=== PATIENT | female | born 1960 | race Caucasian/White ===

== ENCOUNTER 2016-09-01 22:26 | Emergency (ER) | payer OTHER ==
--- NOTE | 2016-09-01 23:29 | ED CLINICAL REPORT ---
Clinical Report - Physicians/Mid Levels [facility] [address] [place] [address] 09/01/2016 22:27 Patient: MAR WILLIAMSON Time Seen: 22:51. Arrived- By private vehicle. Historian- patient. HISTORY OF PRESENT ILLNESS Chief Complaint: DYSURIA. This started yesterday and still present. The symptoms are described as severe. No abdominal pain or pelvic pain. She has had pain with urination and urgency of urination. The patient has had urinary frequency and hematuria. Similar symptoms previously: Several times. Recent medical care: Not recently seen/assessed. REVIEW OF SYSTEMS No nausea, vomiting, fever or chills. PAST HISTORY See nurses notes. ( Menopause). No history of hypertension or diabetes mellitus. Surgeries: . No history of hysterectomy. SOCIAL HISTORY Smoker- current status unknown. No alcohol use or drug use. ADDITIONAL NOTES The nursing notes have been reviewed. PHYSICAL EXAM Vital Signs: 09/01/2016 22:41 BP: 108/67. HR: 61. RR: 16. O2 saturation: 97%. Temp: 97.7 F. Pain level now: 8/10. Have been reviewed and appear to be correct. Appearance: Alert. Oriented X3. No acute distress. HEENT: Normal external inspection. Neck: Neck supple. Respiratory: No respiratory distress. Abdomen: Moderate tenderness in the suprapubic area. Skin: Skin warm and dry. Normal skin color. Normal skin turgor. Neuro: Oriented X 3. Mood/affect normal. PROGRESS AND PROCEDURES Course of Care: Patient is stable. Disposition: Discharged. Condition: stable. CLINICAL IMPRESSION Acute urinary tract infection with cystitis and hematuria. INSTRUCTIONS Drink plenty of fluids. (we will call if change in antibiotic is needed based on culture). Warnings: GENERAL WARNINGS: Return or contact your physician immediately if your condition worsens or changes unexpectedly, if not improving as expected, or if other problems arise. Prescription Medications: Cipro 500 mg: take 1 tab orally every 12 hours for 7 days. No refills. Follow-up: Follow up with your doctor in about two days if not better. Summary of care provided to patient. Understanding of the discharge instructions verbalized by patient. (Electronically signed by Leticia Pace A.R.N.P. 09/01/2016 23:46)
--- NOTE | 2016-09-01 23:29 | ED ORDER SUMMARY ---
..... Patient: MAR WILLIAMSON OrderSheet [facility] VisitID: [id number] [place] [address] 56y, F Registration Date/Time: 09/01/2016 ORDER SHEET Weight: 12.2 kg (stated) Allergies: No Known Drug Allergy GENERAL ORDERS: UA-Culture if indicated Urgent (22:41 09/01/2016 JQuivey R.N. per protocol) (Ack 22:51 [employer] ER Manager Installation) (23:26 JQuivey R.N.) Urine Urgent (22:41 09/01/2016 JQuivey R.N. per protocol) (Ack 22:51 [employer] ER Manager Installation) (23:26 JQuivey R.N.) MEDICATION ORDERS: Pyridium PO 200 mg (NOW) (23:00 09/01/2016 SThom A.R.N.P.) (Ack 23:21 JQuivey R.N.) (23:26 JQuivey R.N.) Levofloxacin PO 250 mg (NOW) (23:27 09/01/2016 SThom A.R.N.P.) (Ack 23:30 JQuivey R.N.) (23:32 JQuivey R.N.) IV FLUIDS: ORDER SHEET NOTES: [Electronically signed by Leticia Pace.R.N.P. (23:46 09/01/2016)] [Electronically signed by Shashi Roblero R.N. (01:00 09/02/2016)] [Electronically locked/signed by Shashi Roblero R.N. (01:00 09/02/2016)]
--- NOTE | 2016-09-01 23:29 | ED NURSING NOTES ---
Clinical Report - Nurses [facility] [place] [address] [address] 09/01/2016 22:27 Patient: MAR WILLIAMSON TRIAGE Triage time 22:41. Acuity: LEVEL 4. Chief Complaint: PAINFUL URINATION, URGENCY and FREQUENCY. Alert. SEPSIS SCREEN: Sepsis Screen. Negative (no infection suspected/documented). --22:46 Shashi Roblero R.N. 22:41 09/01/16. BP: 108/67. HR: 61. RR: 16. O2 saturation: 97%. Temp: 97.7 F (oral). Pain level now: 810. --22:46 Shashi Roblero R.N. Weight: 12.2 kg stated. Height/Length: 61 inches Per Patient. BMI: 5.1. --22:45 Shashi Roblero R.N. Medications Citalopram Hydrobromide Oral (Tablet 40 mg), daily. --22:43 Shashi Roblero R.N. Omeprazole Oral 20 mg, daily. --22:43 Shashi Roblero R.N. TraZODone HCl Oral 50 mg, at bedtime as needed. --22:43 Shashi Roblero R.N. Albuterol Sulfate Inhalation, as needed. --22:44 Shashi Roblero R.N. Vaginal cream hormone cream for moisture. --22:44 Shashi Roblero R.N. Medication/allergy information source: the patient. --22:46 Shashi Roblero R.N. Allergies No Known Drug Allergy. --22:44 Shashi Roblero R.N. History Arrived by private vehicle. Historian: patient. Accompanied by spouse. Primary physician (Dr. Faria). This started last night. Treatment LOW VOLTAGE TECHNICIAN: (OTC pyridium). PAST MEDICAL HX: Immunizations: up-to-date. The patient is post-menopausal. SOCIAL HX: Former smoker, end date 2009. No alcohol use or drug use. No infectious disease exposure. ABUSE ASSESSMENT: No report of abuse. FALL RISK ASSESSMENT: Fall risk assessment completed. No fall risk identified. NUTRITIONAL RISK ASSESSMENT: The nutritional risk assessment revealed no deficiencies. FUNCTIONAL ASSESSMENT: Functional assessment: no impairments noted. LEARNING NEEDS ASSESSMENT: The learning needs assessment revealed no barriers. SKIN INTEGRITY ASSESSMENT: Skin integrity risk assessment completed. No skin integrity risk identified. --22:46 Shashi Roblero R.N. PROBLEMS: UTI - Urinary Tract Infection. Pyelonephritis. Gastroesophageal Reflux. Hyponatremia. Anxiety Reaction. COPD - Chronic Obstructive Pulmonary Disease. Depression. Anxiety. Asthma. --22:45 Shashi Roblero R.N. ADDITIONAL SURGERIES: . --22:45 Shashi Roblero R.N. Interventions ID band on patient. To treatment room. --22:46 Shashi Roblero R.N. PHYSICAL ASSESSMENT 22:46. Ambulatory to room. GENERAL / NEURO / PSYCH: Alert. Oriented X 4. HEENT: Mucous membranes are pink. RESPIRATORY: Respirations not labored. SKIN: Skin is warm and dry. --22:46 Shashi Roblero R.N. NURSING PROGRESS NOTES 22:35. Patient ID band checked for patient name and birthdate: patient confirmed. Clean catch urine collected with return of orange-colored urine; sample sent to lab for urinalysis and HCG. Specimen labeled in the presence of the patient. --22:47 Shashi Roblero R.N. 22:46. Head of bed elevated. Two patient identifiers checked. Call light placed in reach. Bed placed in lowest position. Brakes of bed on. Patient ready for evaluation- chart flagged. --22:47 Shashi Roblero R.N. 23:21 09/01/2016 Pyridium (Phenazopyridine HCl) PO 200 mg given. Allergies verified and confirmed 5 rights. --23:26 Shashi Roblero R.N. 23:31 09/01/2016 Levofloxacin PO 250 mg given. Allergies verified and confirmed 5 rights. --23:32 Shashi Roblero R.N. 23:31. The patient is calm and resting quietly. SKIN: Skin is warm and dry. Skin color within normal limits. --23:37 Shashi Roblero R.N. DISPOSITION / DISCHARGE Departure time: 23:33. Condition at departure: stable. No learning barriers present. Discharge instructions provided and reviewed with the patient. Reviewed medication(s) side effects, precautions, dosing and course information. Prescription(s) given to the patient. Patient verbalized understanding. Written instructions provided in Syriac. The patient was discharged home and accompanied by spouse. She left the Emergency Department ambulatory and via private vehicle. Spouse driving. FALL RISK ASSESSMENT: Fall risk assessment completed. No fall risk identified. --23:37 Shashi Roblero R.N. Locked/Released at 09/02/2016 1:00 by Shashi Roblero R.N.
--- NOTE | 2016-09-01 23:29 | ED NURSING NOTES ---
Clinical Report - Nurses [facility] [place] [address] [address] [place] [address] 09/01/2016 22:27 Patient: MAR WILLIAMSON TRIAGE Triage time 22:41. Acuity: LEVEL 4. Chief Complaint: PAINFUL URINATION, URGENCY and FREQUENCY. Alert. SEPSIS SCREEN: Sepsis Screen. Negative (no infection suspected/documented). --22:46 Shashi Roblero R.N. 22:41 09/01/16. BP: 108/67. HR: 61. RR: 16. O2 saturation: 97%. Temp: 97.7 F (oral). Pain level now: 810. --22:46 Shashi Roblero R.N. Weight: 12.2 kg stated. Height/Length: 61 inches Per Patient. BMI: 5.1. --22:45 Shashi Roblero R.N. Medications Citalopram Hydrobromide Oral (Tablet 40 mg), daily. --22:43 Shashi Roblero R.N. Omeprazole Oral 20 mg, daily. --22:43 Shashi Roblero R.N. TraZODone HCl Oral 50 mg, at bedtime as needed. --22:43 Shashi Roblero R.N. Albuterol Sulfate Inhalation, as needed. --22:44 Shashi Roblero R.N. Vaginal cream hormone cream for moisture. --22:44 Shashi Roblero R.N. Medication/allergy information source: the patient. --22:46 Shashi Roblero R.N. Allergies No Known Drug Allergy. --22:44 Shashi Roblero R.N. History Arrived by private vehicle. Historian: patient. Accompanied by spouse. Primary physician (Dr. Faria). This started last night. 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 PAST MEDICAL HX: Immunizations: up-to-date. The patient is post-menopausal. SOCIAL HX: Former smoker, end date 2009. No alcohol use or drug use. No infectious disease exposure. ABUSE ASSESSMENT: No report of abuse. FALL RISK ASSESSMENT: Fall risk assessment completed. No fall risk identified. NUTRITIONAL RISK ASSESSMENT: The nutritional risk assessment revealed no deficiencies. FUNCTIONAL ASSESSMENT: Functional assessment: no impairments noted. LEARNING NEEDS ASSESSMENT: The learning needs assessment revealed no barriers. SKIN INTEGRITY ASSESSMENT: Skin integrity risk assessment completed. No skin integrity risk identified. --22:46 Shashi Roblero R.N. PROBLEMS: UTI - Urinary Tract Infection. Pyelonephritis. Gastroesophageal Reflux. Hyponatremia. Anxiety Reaction. COPD - Chronic Obstructive Pulmonary Disease. Depression. Anxiety. Asthma. --22:45 Shashi Roblero R.N. ADDITIONAL SURGERIES: . --22:45 Shashi Roblero R.N. Interventions ID band on patient. To treatment room. --22:46 Shashi Roblero R.N. PHYSICAL ASSESSMENT 22:46. Ambulatory to room. GENERAL / NEURO / PSYCH: Alert. Oriented X 4. HEENT: Mucous membranes are pink. RESPIRATORY: Respirations not labored. SKIN: Skin is warm and dry. --22:46 Shashi Roblero R.N. NURSING PROGRESS NOTES 22:35. Patient ID band checked for patient name and birthdate: patient confirmed. Clean catch urine collected with return of orange-colored urine; sample sent to lab for urinalysis and HCG. Specimen labeled in the presence of the patient. --22:47 Shashi Roblero R.N. 22:46. Head of bed elevated. Two patient identifiers checked. Call light placed in reach. Bed placed in lowest position. Brakes of bed on. Patient ready for evaluation- chart flagged. --22:47 Shashi Roblero R.N. 23:21 09/01/2016 Pyridium (Phenazopyridine HCl) PO 200 mg given. Allergies verified and confirmed 5 rights. --23:26 Shashi Roblero R.N. 23:31 09/01/2016 Levofloxacin PO 250 mg given. Allergies verified and confirmed 5 rights. --23:32 Shashi Roblero R.N. 23:31. The patient is calm and resting quietly. SKIN: Skin is warm and dry. Skin color within normal limits. --23:37 Shashi Roblero R.N. DISPOSITION / DISCHARGE Departure time: 23:33. Condition at departure: stable. No learning barriers present. Discharge instructions provided and reviewed with the patient. Reviewed medication(s) side effects, precautions, dosing and course information. Prescription(s) given to the patient. Patient verbalized understanding. Written instructions provided in Japanese. The patient was discharged home and accompanied by spouse. She left the Emergency Department ambulatory and via private vehicle. Spouse driving. FALL RISK ASSESSMENT: Fall risk assessment completed. No fall risk identified. --23:37 Shashi Roblero R.N. Locked/Released at 09/02/2016 1:00 by Shashi Roblero R.N.
--- NOTE | 2016-09-01 23:29 | ED ORDER SUMMARY ---
..... Patient: MAR WILLIAMSON OrderSheet [facility] VisitID: [id number] [place] [address] 56y, F Registration Date/Time: 09/01/2016 ORDER SHEET Weight: 12.2 kg (stated) Allergies: No Known Drug Allergy GENERAL ORDERS: UA-Culture if indicated Urgent (22:41 09/01/2016 JQuivey R.N. per protocol) (Ack 22:51 [employer] ER Advertising Manager) (23:26 JQuivey R.N.) Urine Urgent (22:41 09/01/2016 JQuivey R.N. per protocol) (Ack 22:51 [employer] ER Advertising Manager) (23:26 JQuivey R.N.) MEDICATION ORDERS: Pyridium PO 200 mg (NOW) (23:00 09/01/2016 SThom A.R.N.P.) (Ack 23:21 JQuivey R.N.) (23:26 JQuivey R.N.) Levofloxacin PO 250 mg (NOW) (23:27 09/01/2016 SThom A.R.N.P.) (Ack 23:30 JQuivey R.N.) (23:32 JQuivey R.N.) IV FLUIDS: ORDER SHEET NOTES: [Electronically signed by Leticia Pace.R.N.P. (23:46 09/01/2016)] [Electronically signed by Shashi Roblero R.N. (01:00 09/02/2016)] [Electronically locked/signed by Shashi Roblero R.N. (01:00 09/02/2016)]
--- NOTE | 2016-09-01 23:29 | ED CLINICAL REPORT ---
Clinical Report - Physicians/Mid Levels [facility] [address] [place] [address] 09/01/2016 22:27 Patient: MAR WILLIAMSON Time Seen: 22:51. Arrived- By private vehicle. Historian- patient. HISTORY OF PRESENT ILLNESS Chief Complaint: DYSURIA. This started yesterday and still present. The symptoms are described as severe. No abdominal pain or pelvic pain. She has had pain with urination and urgency of urination. The patient has had urinary frequency and hematuria. Similar symptoms previously: Several times. Recent medical care: Not recently seen/assessed. REVIEW OF SYSTEMS No nausea, vomiting, fever or chills. PAST HISTORY See nurses notes. ( Menopause). No history of hypertension or diabetes mellitus. Surgeries: . No history of hysterectomy. SOCIAL HISTORY Smoker- current status unknown. No alcohol use or drug use. ADDITIONAL NOTES The nursing notes have been reviewed. PHYSICAL EXAM Vital Signs: 09/01/2016 22:41 BP: 108/67. HR: 61. RR: 16. O2 saturation: 97%. Temp: 97.7 F. Pain level now: 8/10. Have been reviewed and appear to be correct. Appearance: Alert. Oriented X3. No acute distress. HEENT: Normal external inspection. Neck: Neck supple. Respiratory: No respiratory distress. Abdomen: Moderate tenderness in the suprapubic area. Skin: Skin warm and dry. Normal skin color. Normal skin turgor. Neuro: Oriented X 3. Mood/affect normal. PROGRESS AND PROCEDURES Course of Care: Patient is stable. Disposition: Discharged. Condition: stable. CLINICAL IMPRESSION Acute urinary tract infection with cystitis and hematuria. INSTRUCTIONS Drink plenty of fluids. (we will call if change in antibiotic is needed based on culture). Warnings: GENERAL WARNINGS: Return or contact your physician immediately if your condition worsens or changes unexpectedly, if not improving as expected, or if other problems arise. Prescription Medications: Cipro 500 mg: take 1 tab orally every 12 hours for 7 days. No refills. Follow-up: Follow up with your doctor in about two days if not better. Summary of care provided to patient. Understanding of the discharge instructions verbalized by patient. (Electronically signed by Leticia Pace A.R.N.P. 09/01/2016 23:46)
--- NOTE | 2016-09-02 01:01 | ED DISCHARGE INSTRUCTIONS ---
Patient: MAR WILLIAMSON General Instructions [facility] VisitID: [id number] [place] [address] 56y, F Registration Date/Time: 09/01/2016 Acute urinary tract infection with cystitis and hematuria. INSTRUCTIONS Drink plenty of fluids. (we will call if change in antibiotic is needed based on culture). Warnings: GENERAL WARNINGS: Return or contact your physician immediately if your condition worsens or changes unexpectedly, if not improving as expected, or if other problems arise. Prescription Medications: Cipro 500 mg: take 1 tab orally every 12 hours for 7 days. No refills. Follow-up: Follow up with your doctor in about two days if not better. Summary of care provided to patient. Understanding of the discharge instructions verbalized by patient. ADDITIONAL INFORMATION Bladder Infection,Female (Adult) A bladder infection ("cystitis" or "UTI") usually causes a constant urge to urinate and a burning when passing urine. Urine may be cloudy, smelly or dark. There may be pain in the lower abdomen. A bladder infection occurs when bacteria from the vaginal area enter the bladder opening (urethra). This can occur from sexual intercourse, wearing tight clothing, dehydration and other factors. Home Care: Drink lots of fluids (at least 6-8 glasses a day, unless you must restrict fluids for other medical reasons). This will force the medicine into your urinary system and flush the bacteria out of your body. Avoid sexual intercourse until your symptoms are gone. Avoid caffeine, alcohol and spicy foods. These can irritate the bladder. A bladder infection is treated with antibiotics. You may also be given Pyridium (generic = phenazopyridine) to reduce the burning sensation. This medicine will cause your urine to become a bright orange color. The orange urine may stain clothing. You may wear a pad or panty-liner to protect clothing. Preventing Future Infections: Always wipe from front to back after a bowel movement. Keep the genital area clean and dry. Drink plenty of fluids each day to avoid dehydration. Both sexual partners should wash before intercourse. Urinate right after intercourse to flush out the bladder. Wear cotton underwear and cotton-lined panty hose; avoid tight-fitting pants. If you are on control pills and are having frequent bladder infections, discuss with your doctor. Follow Up: Return to this facility or see your doctor if ALL symptoms are not gone after three days of treatment. Get Prompt Medical Attention if any of the following occur: Fever of 100.4F (38C) or higher, or as directed by your healthcare provider No improvement by the third day of treatment Increasing back or abdominal pain Repeated vomiting; unable to keep medicine down Weakness, dizziness or fainting Vaginal discharge Pain, redness or swelling in the labia (outer vaginal area) You have been given the following additional information: Bladder Infection, Female (Adult) (Electronically signed by Leticia Pace A.R.N.P. 09/01/2016 23:46)
--- NOTE | 2016-09-02 01:01 | ED MAR SUMMARY ---
..... Medication Administration Record [facility] [address] [place] [address] Patient: MAR WILLIAMSON Visit ID: [id number] 56y, F Weight: 12.2 kg Height/Length: 61 in BMI: 5.1 ALLERGIES: No Known Drug Allergy Given 23:21 09/01/2016 Shashi Roblero, R.N. Medication Administered: PYRIDIUM [PO] (PHENAZOPYRIDINE HCL), Dose: 200 mg PO. Medication Ordered: Pyridium PO 200 mg (NOW). Given 23:31 09/01/2016 Shashi Roblero, R.N. Medication Administered: LEVOFLOXACIN [PO], Dose: 250 mg PO. Medication Ordered: Levofloxacin PO 250 mg (NOW).
--- NOTE | 2016-09-02 01:01 | ED MED RECONCILIATION SUMMARY ---
Patient: MAR WILLIAMSON Medication Reconciliation Report [facility] VisitID: [id number] [address] [place] [address] 56y, F Registration Date/Time: 09/01/2016 Weight: 12.2 kg Height/Length: 61 in. BMI: 5.1 ALLERGIES: No Known Drug Allergy The patient's Home Medications are listed below: THE FOLLOWING MEDICATIONS NEED TO BE RECONCILED: Albuterol Sulfate Inhalation Citalopram Hydrobromide Oral (40 mg), daily Omeprazole Oral 20 mg, daily TraZODone HCl Oral 50 mg, at bedtime Vaginal cream hormone cream for moisture The source(s) of the original Home Medication information: patient The following Medications were given to the patient in the Emergency Department: Pyridium [PO] PO 200 mg, administered: 09/01/2016 11:21:00 PM Levofloxacin [PO] PO 250 mg, administered: 09/01/2016 11:31:00 PM The following Medications were prescribed to the patient: Cipro 500 mg: take 1 tab orally every 12 hours for 7 days. No refills. -- Leticia Pace A.R.N.P.
--- NOTE | 2016-09-02 01:01 | ED MAR SUMMARY ---
..... Medication Administration Record [facility] [address] [place] [address] Patient: MAR WILLIAMSON Visit ID: [id number] 56y, F Weight: 12.2 kg Height/Length: 61 in BMI: 5.1 ALLERGIES: No Known Drug Allergy Given 23:21 09/01/2016 Shashi Roblero, R.N. Medication Administered: PYRIDIUM [PO] (PHENAZOPYRIDINE HCL), Dose: 200 mg PO. Medication Ordered: Pyridium PO 200 mg (NOW). Given 23:31 09/01/2016 Shashi Roblero, R.N. Medication Administered: LEVOFLOXACIN [PO], Dose: 250 mg PO. Medication Ordered: Levofloxacin PO 250 mg (NOW).
--- NOTE | 2016-09-02 01:01 | ED MED RECONCILIATION SUMMARY ---
Patient: MAR WILLIAMSON Medication Reconciliation Report [facility] VisitID: [id number] [place] [address] 56y, F Registration Date/Time: 09/01/2016 Weight: 12.2 kg Height/Length: 61 in. BMI: 5.1 ALLERGIES: No Known Drug Allergy The patient's Home Medications are listed below: THE FOLLOWING MEDICATIONS NEED TO BE RECONCILED: Albuterol Sulfate Inhalation Citalopram Hydrobromide Oral (40 mg), daily Omeprazole Oral 20 mg, daily TraZODone HCl Oral 50 mg, at bedtime Vaginal cream hormone cream for moisture The source(s) of the original Home Medication information: patient The following Medications were given to the patient in the Emergency Department: Pyridium [PO] PO 200 mg, administered: 09/01/2016 11:21:00 PM Levofloxacin [PO] PO 250 mg, administered: 09/01/2016 11:31:00 PM The following Medications were prescribed to the patient: Cipro 500 mg: take 1 tab orally every 12 hours for 7 days. No refills. -- Leticia Pace A.R.N.P.
== END 2016-09-01 23:33 | disposition home or self-care (01) ==
LOC: ED SRH 22:26
DX: N30.01 Acute cystitis with hematuria (principal)
CPT/HCPCS: 90004; 90148; 90469; 93070